=== PATIENT | female | born 1955 | race Caucasian/White ===

== ENCOUNTER 2017-01-09 13:49 | Outpatient (RCR) | payer BC ==
[~2017-01-09 13:49] MED LIST: ALPR.25T PO; AMOX500C2 PO; ASP325T PO; ASPI-892 PO; ATOR40TA PO; CALCIUM; CEPH500C PO; ISM30TCR PO; LRT10T PO; METO50TA7 PO; OMG1KC; OMG1KC PO; PANT20TA2 PO; PHEN30TA37 PO; PNT40TEC; PROP1TAB77; PRX20T; PRX20T PO; TOPROL; [UNRECOGNIZED DRUG - CODE] PO; [UNRECOGNIZED DRUG - OTHER] PO
--- OUTSIDE RECORDS SUMMARY | 2017-01-09 13:53 | XMS REPORT | Continuity of Care Document ---
Author Author [facility] Organization [facility] Address Unknown Phone Unavailable Allergies Active Description Code Type Severity Reaction Onset Reported/Identified Relationship to Patient Clinical Status Yes erythromycin base [id number] Drug Allergy Unknown N/A 09/06/2008 Yes hydrocodone [id number] Drug Allergy Unknown N/A 09/06/2008 Yes methylprednisolone [id number] Drug Allergy Unknown N/A 09/06/2008 Yes Sulfa (Sulfonamide Antibiotics) [id number] Drug Allergy Unknown N/A 09/06/2008 Yes Iodinated Contrast Media - IV Dye [id number] Drug Allergy Mild ITCHING, FLUSHI 09/28/2008 Medications Problems Date Dx Coded Attending Type Code Diagnosis Diagnosed By 01/03/2015 Ot 793.80 01/03/2015 Ot 174.9 01/03/2015 Ot V49.81 01/03/2015 Ot V58.69 01/03/2015 Ot V82.81 01/03/2015 Ot 174.9 01/03/2015 Ot 196.3 01/03/2015 Ot 457.1 01/03/2015 Ot V15.3 01/03/2015 Ot V58.69 01/03/2015 Ot V87.41 01/04/2015 Ot 793.80 01/04/2015 Ot 174.9 01/04/2015 Ot V49.81 01/04/2015 Ot V58.69 01/04/2015 Ot V82.81 01/04/2015 Ot 174.9 01/04/2015 Ot 196.3 01/04/2015 Ot 457.1 01/04/2015 Ot V15.3 01/04/2015 Ot V58.69 01/04/2015 Ot V87.41 02/24/2015 BASILIO STACK Ot 266.2 02/24/2015 BASILIO STACK Ot 457.1 02/24/2015 BASILIO STACK Ot 790.5 02/24/2015 BASILIO STACK Ot V10.3 02/24/2015 LUISITO STACKAN N Ot V15.3 02/24/2015 SEDABASILIO KOCH N Ot V58.69 02/24/2015 SEDABASILIO KOCH N Ot V67.1 02/24/2015 SEDABASILIO KOCH N Ot V67.2 02/24/2015 SEDABASILIO KOCH N Ot V87.41 04/19/2015 SEDABASILIO KOCH N Ot 266.2 04/19/2015 SEDABASILIO KOCH N Ot 457.1 04/19/2015 SEDABASILIO N Ot 790.5 04/19/2015 SEDABASILIO N Ot V10.3 04/19/2015 SEDABASILIO N Ot V15.3 04/19/2015 SEDABASILIO KOCH N Ot V58.69 04/19/2015 SEDABASILIO KOCH N Ot V67.1 04/19/2015 SEDABASILIO KOCH N Ot V67.2 04/19/2015 SEDABASILIO KOCH N Ot V87.41 09/27/2015 [employer] CHA[employer] Ot C50.919 09/27/2015 [employer] CHAIR Ot I89.0 01/22/2016 [employer] DEPARTMENT CHAIR Ot I89.0 01/22/2016 [employer] DEPARTMENT CHAIR Ot Z08 01/22/2016 [employer] DEPARTMENT CHAIR Ot Z85.3 01/22/2016 [employer] DEPARTMENT CHAIR Ot Z92.21 01/22/2016 [employer] DEPARTMENT CHAIR Ot Z92.3 01/31/2016 BASILIO STACK N Ot C50.911 01/31/2016 SEDABASILIO KOCH N Ot I89.0 01/31/2016 SEDABASILIO KOCH N Ot Z12.31 02/05/2016 [employer] DEPARTMENT CHAIR Ot I89.0 02/05/2016 [employer] DEPARTMENT CHAIR Ot Z08 02/05/2016 MIS[employer]H FL[employer]ES S [employer] SCI[employer] DEPARTMENT CHAIR Ot Z85.3 02/05/2016 [employer] DEPARTMENT CHAIR Ot Z92.21 02/05/2016 [employer] DEPARTMENT CHAIR Ot Z92.3 Procedures Results Encounters ACCT No. Visit Date/Time Discharge Status Pt. Type Provider Facility Loc./Unit Complaint [id number] 08/31/2015 10:01:00 2014 15:35:00 DIS Outpatient [employer] CHAIR [facility] REHAB [id number] 04/20/2015 00:10:00 2014 23:59:59 CLS Preadmit BASILIO STACK [facility] ONC [id number] 01/19/2015 10:10:00 2014 00:01:00 DIS Outpatient BASILIO STACK [facility] ONC [id number] 01/20/2014 10:46:00 2013 23:59:59 CLS Outpatient [id number] 01/04/2014 08:17:00 2013 23:59:59 CLS Outpatient [id number] 08/31/2013 09:10:00 2012 12:37:00 DIS Outpatient [id number] 09/24/2013 09:09:00 2012 23:59:59 CLS Outpatient [id number] 07/22/2013 10:05:00 2012 23:59:59 CLS Outpatient [id number] 07/05/2013 08:15:00 2012 23:59:59 CLS Outpatient [id number] 01/18/2016 10:12:00 ACT Outpatient [employer] CHAIR [facility] ONC [id number] 01/05/2016 10:19:00 ACT Outpatient BASILIO STACK [facility] RAD [id number] 01/03/2015 10:17:00 Document Registration
[2017-01-09 14:28] LABS: BASOPHILS % (AUTO) 1 % (0-10); EOSINOPHILS # (AUTO) 0.4 10^3/uL (0.0-0.3); EOSINOPHILS % (AUTO) 6 % (0-10); LYMPHOCYTES # (AUTO) 1.8 X 10^3 (1.0-4.0); LYMPHOCYTES % (AUTO) 26 % (12-44); MEAN CORPUSCULAR HEMOGLOBIN 29 PG (25-34); MEAN CORPUSCULAR HGB CONC 33 G/DL (32-36); MEAN CORPUSCULAR VOLUME 89 FL (80-99); MEAN PLATELET VOLUME 9.9 FL (7.4-10.4); MONOCYTES # (AUTO) 0.7 X 10^3 (0.0-1.0); MONOCYTES % (AUTO) 10 % (0-12); NEUTROPHILS # (AUTO) 3.9 X 10^3 (1.8-7.8); NEUTROPHILS % (AUTO) 57 % (42-75); PLATELET COUNT 249 10^3/uL (130-400); RED BLOOD COUNT 4.85 10^6/uL (4.35-5.85); RED CELL DISTRIBUTION WIDTH 13.1 % (10.0-14.5); WHITE BLOOD COUNT 6.8 10^3/uL (4.3-11.0)
== END 2017-04-09 | disposition home or self-care (01) ==
LOC: ONC 13:49
PROVIDERS: ATTEND Internal Medicine Hematology & Oncology
DX: Z08 Encounter for follow-up examination after completed treatment for malignant neoplasm (principal); Z85.3 Personal history of malignant neoplasm of breast; I89.0 Lymphedema, not elsewhere classified; Z92.3 Personal history of irradiation; Z92.21 Personal history of antineoplastic chemotherapy
CPT/HCPCS: 36415; 85025

== ENCOUNTER → 2017-01-10 | Outpatient (CLI) | payer BC ==
--- OUTSIDE RECORDS SUMMARY | 2017-01-10 13:23 | XMS REPORT | Continuity of Care Document ---
Author Author [facility] Organization [facility] Address Unknown Phone Unavailable Allergies Active Description Code Type Severity Reaction Onset Reported/Identified Relationship to Patient Clinical Status Yes erythromycin base [id number] Drug Allergy Unknown N/A 09/06/2008 Yes hydrocodone [id number] Drug Allergy Unknown N/A 09/06/2008 Yes methylprednisolone [id number] Drug Allergy Unknown N/A 09/06/2008 Yes Sulfa (Sulfonamide Antibiotics) [id number] Drug Allergy Unknown N/A 09/06/2008 Yes Iodinated Contrast Media - IV Dye [id number] Drug Allergy Mild ITCHING, FLUSHI 09/28/2008 Medications [...] KOCH N Ot V87.41 09/27/2015 M[employer] PH[employer] ASSISTANT Ot C50.919 09/27/2015 M[employer] PHARM[employer] ASSISTANT Ot I89.0 01/22/2016 M[employer] PHARMAC[employer] ASSISTANT Ot I89.0 01/22/2016 M[employer] PHARMAC[employer] ASSISTANT Ot Z08 01/22/2016 M[employer] PHARM[employer] ASSISTANT Ot Z85.3 01/22/2016 M[employer] PHARMAC[employer] ASSISTANT Ot Z92.21 01/22/2016 M[employer] PHARMAC[employer] ASSISTANT Ot Z92.3 01/31/2016 BASILIO STACK N Ot C50.911 01/31/2016 SEDABASILIO KOCH N Ot I89.0 01/31/2016 SEDABASILIO KOCH N Ot Z12.31 02/05/2016 [employer] PHARMAC[employer] ASSISTANT Ot I89.0 02/05/2016 MIS[employer] PHARMACY ASSISTANT Ot Z08 02/05/2016 MISBAH FLORES S PHARMACY ASSISTANT Ot Z85.3 02/05/2016 MIS[employer]H FL[employer]ES PHARMACY ASSISTANT Ot Z92.21 02/05/2016 MIS[employer]H [employer]ES PHARMACY ASSISTANT Ot Z92.3 Procedures Results Encounters ACCT No. Visit Date/Time Discharge Status Pt. Type Provider Facility Loc./Unit Complaint [id number] 08/31/2015 10:01:00 2014 15:35:00 DIS Outpatient [employer] ASSISTANT [facility] REHAB [id number] 04/20/2015 00:10:00 2014 23:59:59 CLS Preadmit BASILIO STACK [facility] ONC [id number] 01/19/2015 10:10:00 2014 00:01:00 DIS Outpatient BASILIO STACK [facility] ONC [id number] 01/20/2014 10:46:00 2013 23:59:59 CLS Outpatient [id number] 01/04/2014 08:17:00 2013 23:59:59 CLS Outpatient [id number] 08/31/2013 09:10:00 2012 12:37:00 DIS Outpatient [id number] 09/24/2013 09:09:00 2012 23:59:59 CLS Outpatient [id number] 07/22/2013 10:05:00 2012 23:59:59 CLS Outpatient [id number] 07/05/2013 08:15:00 2012 23:59:59 CLS Outpatient [id number] 01/18/2016 10:12:00 ACT Outpatient [employer] ASSIST[employer] [facility] ONC [id number] 01/05/2016 10:19:00 ACT Outpatient BASILIO STACK [facility] RAD [id number] 01/03/2015 10:17:00 Document Registration
--- NOTE | 2017-01-14 20:09 | Diagnostic Imaging Report ---
INDICATION: Bilateral screening mammogram. This study was compared to the prior exams of 01/05/16, 01/04/15 and 01/04/14. At this time, there are no current complaints. The current study was also evaluated with a Computer Aided Detection (CAD) system. FINDINGS: The scar formation related to the patient's prior lumpectomy in the upper-outer aspect of the right breast seen on the previous exams is again evident and no different. There is no sign of recurrent malignancy on the right. The overall appearance of the right breast is stable when compared to the prior exam. In the medial retroareolar region of the left breast approximately 4 cm from the nipple, a group of microcalcifications has developed. Another group of microcalcifications has developed in the 12 o'clock position of the left breast roughly 8 cm from the nipple. These findings are worrisome for malignancy. I would recommend that compression/magnification views of these areas be obtained in both the CC and MLO projections for further study. IMPRESSION: 1. The post lumpectomy changes involving the right breast appear stable. 2. There are 2 new groups of microcalcifications in the left breast. Additional mammographic views would be recommended for further study. ACR BI-RADS Category 0: Incomplete. (Needs additional imaging evaluation). Result letter will be mailed to the patient. Note: At least 10% of breast cancer is not imaged by mammography. Dictated by: Dictated on workstation # [id number]
== END ==
LOC: RAD 13:20
PROVIDERS: ATTEND Nurse Practitioner Adult Health
DX: Z12.31 Encounter for screening mammogram for malignant neoplasm of breast (principal)
CPT/HCPCS: 77067

== ENCOUNTER → 2017-02-05 | Outpatient (CLI) | payer BC ==
--- NOTE | 2017-02-05 14:39 | Diagnostic Imaging Report ---
EXAMINATION: Left breast ultrasound. INDICATION: Concerning calcifications in the mid aspect of the left breast and other upper nonspecific left breast calcifications. FINDINGS: At the 10 o'clock zone 3 cm from nipple, there is a 0.6 x 0.6 x 0.6 cm irregular hypoechoic nodule with increased vascularity and shadowing, suspicious for malignancy. The four-quadrants of the retroareolar region were scanned with no other abnormality seen otherwise. IMPRESSION: 1. There is a 0.6 cm suspicious irregular nodule at the 10:30 o'clock position 3 cm from the nipple. An ultrasound-guided biopsy is recommended. 2. The other calcifications in the upper aspect of the right breast demonstrate no correlating lesion by ultrasound. They remain indeterminate. The linear distribution is somewhat concerning, especially in a patient with a history of breast cancer. Their anterior position and loose clustering of these calcifications would render a stereotactic biopsy difficult. Assessment with a breast MRI is recommended. ACR BI-RADS Category 4C: Moderate suspicion of malignancy. The findings were discussed with Dr. Scott at the time of dictation. Dictated by: Dictated on workstation # [id number]
--- NOTE | 2017-02-05 18:19 | Diagnostic Imaging Report ---
Left breast diagnostic mammogram. INDICATION: New group of calcifications in the medial aspect of the left breast. The current study was also evaluated with a Computer Aided Detection (CAD) system. FINDINGS: There is a group of calcifications with slight heterogeneity seen about 3 cm medial periareolar region in the left breast. There is a question of an underlying nodule. The other group of calcifications is loosely clustered in the central aspect of the left breast and probably correlates with superior left breast calcifications on the true lateral view. Based on their loose clustering, they are favored to be benign although the linear distribution is somewhat worrisome. IMPRESSION: Heterogenous calcifications in the medial aspect of the left breast and upper loosely clustered calcifications in a linear distribution seen. Ultrasound evaluation is pending. ACR BI-RADS Category 0: Incomplete. (Needs additional imaging evaluation). Result letter will be mailed to the patient. Note: At least 10% of breast cancer is not imaged by mammography. Dictated by: Dictated on workstation # [id number]
== END ==
LOC: RAD 13:10
PROVIDERS: ATTEND Nurse Practitioner Adult Health
DX: C50.511 Malignant neoplasm of lower-outer quadrant of right female breast (principal); R92.8 Other abnormal and inconclusive findings on diagnostic imaging of breast
CPT/HCPCS: 76641

== ENCOUNTER → 2017-02-06 | Outpatient (CLI) | payer BC ==
[~2017-02-06] VITALS: Ht 172.7 cm; Wt 102.1 kg
[~2017-02-06] MED LIST changes: +LIDOCAINE 1% INJ 20 ML (XYLOCAINE) VIAL INJ ONE; +LIDOCAINE 1% INJ 20 ML (XYLOCAINE) VIAL ONE
[2017-02-06 14:04] VITALS: BP 138/80
[2017-02-06 14:59] VITALS: BP 129/78
--- NOTE | 2017-02-06 15:45 | Diagnostic Imaging Report ---
EXAMINATION: Vacuum-assisted ultrasound-guided biopsy of breast mass left. A metallic clip placed to dell biopsy site. INDICATION: Left breast mass. CONSENT: Informed consent was obtained from the patient. The risks, benefits, potential complications and alternatives were reviewed and all questions answered to the patient's satisfaction. FINDINGS: Ultrasound images demonstrate 10:00, subcentimeter mass in the left breast 3 cm from the nipple. PROCEDURE: After sterile preparation and draping, 1% lidocaine was utilized for local anesthesia. A vacuum-assisted biopsy device with 14-gauge needle was introduced under live ultrasound guidance into the lesion. Good needle position was documented with ultrasound images. A metallic clip was placed to dell the site of the biopsy. A subsequent mammogram is performed and confirms the proper positioning of the clip. Multiple samples were obtained and sent to pathology. The patient tolerated the procedure well with no immediate complications. IMPRESSION: Successful ultrasound-guided biopsy of 10:30 position suspicious left breast mass. A metallic clip placed to dell biopsy site. Dictated by: Dictated on workstation # [id number]
--- NOTE | 2017-02-06 19:46 | Diagnostic Imaging Report ---
EXAMINATION: Left breast digital diagnostic mammogram with CAD with CC and lateral views of the left breast. The current study was also evaluated with a Computer Aided Detection (CAD) system. INDICATION: Left breast calcifications and nodule in the medial upper periareolar region. FINDINGS: Biopsy clip is seen at the site of calcified nodules seen on prior mammogram in the medial upper aspect of the left breast about 3 cm from the nipple. IMPRESSION: Satisfactory clip placement at site of the calcified nodule where the calcifications appear to have been removed with biopsy. Pathology results are pending. ACR BI-RADS Category 4: Suspicious abnormality. Result letter will be mailed to the patient. Note: At least 10% of breast cancer is not imaged by mammography. Dictated by: Dictated on workstation # [id number]
== END ==
LOC: RAD 13:51
PROVIDERS: ATTEND Nurse Practitioner Adult Health
DX: N63 Unspecified lump in breast (principal); C50.511 Malignant neoplasm of lower-outer quadrant of right female breast
CPT/HCPCS: 19083; 88305; 88360

== ENCOUNTER → 2018-01-19 | Outpatient (CLI) | payer BC ==
[~2018-01-19] MED LIST changes: -LIDOCAINE 1% INJ 20 ML (XYLOCAINE) VIAL INJ ONE; -LIDOCAINE 1% INJ 20 ML (XYLOCAINE) VIAL ONE
== END ==
LOC: ONC 15:05
PROVIDERS: ATTEND Internal Medicine Hematology & Oncology
DX: C50.511 Malignant neoplasm of lower-outer quadrant of right female breast (principal); Z17.0 Estrogen receptor positive status [ER+]; I89.0 Lymphedema, not elsewhere classified; E78.00 Pure hypercholesterolemia, unspecified; E11.9 Type 2 diabetes mellitus without complications; Z79.811 Long term (current) use of aromatase inhibitors; Z92.21 Personal history of antineoplastic chemotherapy; Z92.3 Personal history of irradiation; Z79.899 Other long term (current) drug therapy; Z79.84 Long term (current) use of oral hypoglycemic drugs
CPT/HCPCS: 99213

== ENCOUNTER → 2020-05-08 | Outpatient (CLI) | payer BC | LOC: EDSTATUS 06-18 11:22 → ONC 13:59 | PROVIDERS: ATTEND Internal Medicine Hematology & Oncology | DX: Z51.81 Encounter for therapeutic drug level monitoring (principal); C50.212 Malignant neoplasm of upper-inner quadrant of left female breast; C50.511 Malignant neoplasm of lower-outer quadrant of right female breast; I89.0 Lymphedema, not elsewhere classified; I10 Essential (primary) hypertension; K21.9 Gastro-esophageal reflux disease without esophagitis; E78.00 Pure hypercholesterolemia, unspecified; Z92.3 Personal history of irradiation; Z90.13 Acquired absence of bilateral breasts and nipples; Z92.21 Personal history of antineoplastic chemotherapy | CPT/HCPCS: 99213 ==

== ENCOUNTER → 2021-03-19 | Outpatient (CLI) | payer BC | LOC: ONC 09:08 | PROVIDERS: ATTEND Internal Medicine Hematology & Oncology | DX: C50.212 Malignant neoplasm of upper-inner quadrant of left female breast (principal); I10 Essential (primary) hypertension; K21.9 Gastro-esophageal reflux disease without esophagitis; E78.00 Pure hypercholesterolemia, unspecified; I89.0 Lymphedema, not elsewhere classified; Z90.11 Acquired absence of right breast and nipple; Z85.3 Personal history of malignant neoplasm of breast; Z92.3 Personal history of irradiation; Z92.21 Personal history of antineoplastic chemotherapy; Z98.890 Other specified postprocedural states; Z90.12 Acquired absence of left breast and nipple | CPT/HCPCS: 99213 ==